=== PATIENT | female | born 1980 | race Hispanic/Latino ===

== ENCOUNTER 2022-09-08 18:47 | Emergency (ER) | payer BC ==
[~2022-09-08] VITALS: Ht 157.5 cm; Wt 74.8 kg
[2022-09-08] MEDS ORDERED: SODIUM CHLORIDE 0.9% 1000ML 1,000 ML ONE (19:11)
[2022-09-08] MEDS ORDERED: SODIUM CHLORIDE 0.9% 1000ML 1,000 ML IV ONE (19:15)
[2022-09-08 22:05] VITALS: BP 129/72; PULSE 70; RESP 18; TEMP 98; O2SAT 99
== END 2022-09-08 21:50 | disposition home or self-care (01) ==
LOC: FSED 18:51
DX: O20.0 Threatened abortion (principal)
CPT/HCPCS: 36415; 76801; 80053; 81003; 81025; 84702; 85025; 99284; J7030